=== PATIENT | female | born 1930 | race Caucasian/White ===

== ENCOUNTER 2016-10-18 09:59 | Observation (INO) | payer MEDICARE, OTHER ==
[~2016-10-18] VITALS: Ht 157.5 cm; Wt 64.9 kg
[2016-10-18] MEDS ORDERED: ASPIRIN 81 MG TAB PO STA (10:20)
[2016-10-18] MEDS ORDERED: DILT240C98 PO (10:36)
[2016-10-18] MEDS ORDERED: ERGO2000 PO (10:39)
[2016-10-18] MEDS ORDERED: NIT4 SL (10:40)
[2016-10-18] MEDS ORDERED: WARF2.5T PO (10:42)
[2016-10-18] MEDS ORDERED: WARF5TAB72 PO (10:42)
[2016-10-18] MEDS ORDERED: TRAZ50TA18 PO (10:43)
[2016-10-18] MEDS ORDERED: CARV6.2579 PO (10:43)
[2016-10-18] MEDS ORDERED: ALEN70TA30 PO (10:43)
[2016-10-18] MEDS ORDERED: TIMO5DRO30 BOTH EYES (10:44)
[2016-10-18] MEDS ORDERED: PREMVAG VAG (10:44)
[2016-10-18 10:46] LABS: BASOPHILS % 0.3 % (0.0-2.0); EOSINOPHILS # 0.1 10^3/ul (0.0-0.5); EOSINOPHILS % 1.3 % (0.0-7.0); HEMATOCRIT 38.5 % (37.0-47.0); HEMOGLOBIN 12.7 g/dl (12.0-16.0); LYMPHOCYTES # 2.1 10^3/ul (0.8-2.9); LYMPHOCYTES % 25.9 % (15.0-51.0); MEAN CORPUSCULAR HEMOGLOBIN 29.1 pg (29.0-33.0); MEAN CORPUSCULAR VOLUME 88.3 fl (82.0-101.0); MEAN PLATELET VOLUME 10.6 fl (7.4-10.4); MONOCYTE # 0.5 10^3/ul (0.3-0.9); MONOCYTES % 6.3 % (0.0-11.0); NEUTROPHIL # 5.2 10^3/ul (1.6-7.5); NEUTROPHILS % 65.8 % (39.0-77.0); PLATELET COUNT 188 10^3/UL (140-415); RED BLOOD COUNT 4.36 10^6/ul (4.20-5.40); RED CELL DISTRIBUTION WIDTH 13.6 % (11.5-14.5); WHITE BLOOD COUNT 7.9 10^3/ul (4.8-10.8)
[2016-10-18 11:04] LABS: INR 2.52; PARTIAL THROMBOPLASTIN TIME 30.9 Sec (25.0-35.0); PROTIME 27.5 Sec (12.2-14.2); PT RATIO 2.1
[2016-10-18 11:06] LABS: ANION GAP 18 (8-16); BLOOD UREA NITROGEN 16 mg/dl (7-20); CALCIUM 8.7 mg/dl (8.4-10.2); CARBON DIOXIDE 26 mmol/L (21-31); CHLORIDE 105 mmol/L (97-110); CREATININE 0.81 mg/dl (0.44-1.00); GLUCOSE 119 mg/dl (70-220); POTASSIUM 3.9 mmol/L (3.5-5.1); SODIUM 145 mmol/L (135-144)
--- NOTE | 2016-10-18 11:08 | RADRPT ---
PROCEDURE: XR Chest. CLINICAL INDICATION: Chest Pain. TECHNIQUE: Single frontal chest x-ray. COMPARISON: None. FINDINGS: The lungs are clear of acute infiltrates, edema, effusions, or masses. There is a dual chamber cardi ac pacer overlying the left chest. Calcific atherosclerosis of the aorta is present.. The cardiomed iastinal silhouette is unremarkable. The osseous structures are intact. IMPRESSION: No acute cardiopulmonary disease. Left-sided cardiac pacer in place. RPTAT: JJ .Marvin Dewey MD, MD Date Time Electronically viewed and signed by .Marvin Dewey MD, MD on 10/18/2016 11:08 .L/
[2016-10-18 11:14] LABS: B-TYPE NATRIURETIC PEPTIDE 694 PG/ML (0-450)
[2016-10-18 11:23] LABS: TROPONIN-I < 0.012 ng/ml (0.00-0.12)
--- NOTE | 2016-10-18 11:42 | ERA ---
ER Documentation Chief Complaint Date/Time DATE: 10/18/16 TIME: 11:39 Chief Complaint SOB HPI 86-year-old female, Tongan-speaking. The patient presents with shortness of breath and chest discomfort prior to arrival. The patient was given nitroglycerin by family prior to arrival and was hypotensive responsive to fluid resuscitation via EMS. The patient is improved currently. She denies any pleuritic pain, no fevers chills or cough. ROS All systems reviewed and are negative except as per history of present illness. Medications Home Meds Reported Medications Estrogens Conjugated* (Premarin* Vaginal Cream) 1 Applic Cr, 1 APPLIC VAG BID, TUB 10/18/16 Timolol Maleate* (Timoptic*) 0.5%-5ml Opht, 1 DROP BOTH EYES BID, #1 EA 10/18/16 Alendronate Sodium* (Fosamax*) 70 Mg Tablet, 70 MG PO EVERY SATURDAY, #4 TAB 10/18/16 Carvedilol* (Carvedilol*) 6.25 Mg Tablet, 6.25 MG PO BID, #60 TAB 10/18/16 Trazodone Hcl* (Trazodone Hcl*) 50 Mg Tablet, 50 MG PO QHS Y for INSOMNIA, #30 TAB 10/18/16 Warfarin Sodium* (Coumadin*) 5 Mg Tablet, 5 MG PO SEE NOTE, TAB SUN,TUE,WED,THUR,SAT 10/18/16 Warfarin Sodium* (Coumadin*) 2.5 Mg Tablet, 2.5 MG PO MON AND FRI, TAB 10/18/16 Nitroglycerin* (Nitrostat*) 0.4 Mg Tab.subl, 0.4 MG SL Q5MIN Y for CHEST PAIN, BOTTLE 10/18/16 Ergocalciferol (Vitamin D2) (VITAMIN D2) 2,000 Unit Tablet, 2000 UNIT PO DAILY, TAB 10/18/16 Diltiazem Hcl* (Diltiazem XT) 240 Mg Capsule.er, 240 MG PO DAILY, #30 CAP 10/18/16 Allergies Allergies: Coded Allergies: No Known Drug Allergy (Verified Allergy, Mild, 10/18/16) PMhx/Soc History of Surgery: Yes (Pacemaker, ) Anesthesia Reaction: No Hx Neurological Disorder: No Hx Respiratory Disorders: No Hx Cardiac Disorders: Yes (HTN) Hx Psychiatric Problems: No Hx Miscellaneous Medical Probl: No Hx Alcohol Use: No Hx Substance Use: No Hx Tobacco Use: No Smoking Status: Never smoker FmHx Family History: No diabetes Physical Exam Vitals Vital Signs Date Time Temp Pulse Resp B/P Pulse Ox O2 Delivery O2 Flow Rate FiO2 10/18/16 10:24 0 10/18/16 10:10 98.0 75 28 148/83 100 Physical Exam General: Well developed, well nourished, no acute distress Head: Normocephalic, atraumatic. Eyes: Pupils equally reactive, EOM intact ENT: Moist mucous membranes Neck: Supple, no lymphadenopathy Respiratory: Lungs clear bilaterally, no distress Cardiovascular: RRR, no murmurs, rubs, or gallops Abdominal: Soft, non-tender, non-distended, no peritoneal signs : Deferred MSK: No edema, no unilateral swelling, 5/5 strength Neurologic: Alert and oriented, moving all extremities, normal speech, no focal weakness, no cerebellar signs Skin: No rash Psych: Normal mood Result Diagram: 10/18/16 1034 10/18/16 1034 Results 24 hrs Laboratory Tests Test 10/18/16 10:34 White Blood Count 7.910^3/ul Red Blood Count 4.3610^6/ul Hemoglobin 12.7g/dl Hematocrit 38.5% Mean Corpuscular Volume 88.3fl Mean Corpuscular Hemoglobin 29.1pg Mean Corpuscular Hemoglobin Concent 33.0g/dl Red Cell Distribution Width 13.6% Platelet Count 15829^3/UL Mean Platelet Volume 10.6fl Neutrophils % 65.8% Lymphocytes % 25.9% Monocytes % 6.3% Eosinophils % 1.3% Basophils % 0.3% Nucleated Red Blood Cells % 0.0/100WBC Neutrophils # 5.210^3/ul Lymphocytes # 2.110^3/ul Monocytes # 0.510^3/ul Eosinophils # 0.110^3/ul Basophils # 0.010^3/ul Nucleated Red Blood Cells # 0.010^3/ul Prothrombin Time 27.5Sec Prothrombin Time Ratio 2.1 INR International Normalized Ratio 2.52 Activated Partial Thromboplast Time 30.9Sec Sodium Level 145mmol/L Potassium Level 3.9mmol/L Chloride Level 105mmol/L Carbon Dioxide Level 26mmol/L Anion Gap 18 Blood Urea Nitrogen 16mg/dl Creatinine 0.81mg/dl Glucose Level 119mg/dl Calcium Level 8.7mg/dl Troponin I < 0.012ng/ml B-Type Natriuretic Peptide 694PG/ML Current Medications Medications (Trade) Dose Ordered Sig/Eddie Route PRN Reason Start Time Stop Time Status Last Admin Dose Admin Aspirin (Aspirin) 162 mg ONCE STAT PO 10/18/16 10:20 10/18/16 10:22 DC 10/18/16 10:43 Procedures/MDM EKG, MONITORS, & DIAGNOSTIC IMAGING: EKG: I reviewed and interpreted a 12-lead EKG. Rhythm: paced rhythm Ectopy: None Intervals: No abnormalities ST segments: No elevations or depressions T waves: No contiguous inversions Repeat EKG: EKG: I reviewed and interpreted a 12-lead EKG. Rhythm: Paced rhythm Ectopy: None Intervals: No abnormalities ST segments: No elevations or depressions T waves: No contiguous inversions Chest x-ray: I reviewed and interpreted a 1 view of the chest Mediastinum: No enlargement Cardiac silhouette: No cardiomegaly Airspace: Clear lung martinez bilaterally without evidence of pneumothorax Bones: No evidence of fracture LAB INTERPRETATION: Negative troponin, indeterminate BMP MEDICAL DECISION MAKING: The patient's history, physical exam and clinical presentation is concerning for possible cardiogenic etiology and acute coronary syndrome. Based on the patient's clinical exam and history and risk factors, I have a much lower clinical concern for pulmonary embolism, acute aortic dissection, pneumothorax, pneumonia, cardiac tamponade HEART Score: 5 MACE Rate: 16.6% Shared Decision Making: We had a conversation regarding risk stratification, MACE rate, and the risks, benefits, alternatives of disposition planning options. Disposition planning: Hospitalization ER COURSE: Aspirin completed, nitroglycerin provided. Patient remains asymptomatic and is resting comfortably. I kept the patient and/or family informed of laboratory and diagnostic imaging results throughout the emergency room course. DISPOSITION PLAN: Telemetry admission for management of chest pain to rule out ACS CONSULTATION: Accepting care team and consultations: I discussed the current laboratory data, diagnostic imaging and emergency care provided. Admitting team: Dr. Ross Admitting team indication: Insurance directed Consulting services: Departure Diagnosis: Primary Impression: Shortness of breath Additional Impression: Chest pain Qualified Code: R07.9 - Chest pain, unspecified type Condition: EJ Partida MD Oct 18, 2016 11:41
[2016-10-18 11:44] VITALS: BP 157/71; RESP 17
[2016-10-18] MEDS ORDERED: ACETAMINOPHEN 325 MG TAB PO PRN (12:00)
[2016-10-18] MEDS ORDERED: ONDANSETRON 4 MG INJ IV PRN (12:00)
[2016-10-18 12:12] VITALS: PULSE 80
[2016-10-18 13:07] VITALS: Ht 157.5 cm; Wt 64.9 kg
--- NOTE | 2016-10-18 15:13 | HP ---
Date/Time of Note Date/Time of Note DATE: 10/18/16 TIME: 15:07 Assessment/Plan VTE Prophylaxis VTE Prophylaxis Intervention: other Lines/Catheters IV Catheter Type (from Nrsg): Peripheral IV Assessment/Plan Chief Complaint/Hosp Course 86 yo female with h/o permanent A Fib, PPM for sick sinus syndrome, hypertension who presents after episode of CP this AM for which she took SLNG and then developed sympomatic hypotension CP: - Perhaps brief episode of angina, though suspect noncardiac cause given EKG findings and negative biomarker - No need for further stress testing - Repeat troponin would be reasonable but patient and family decline, prefer to go home now Hypertension: - Continue Coreg 6.25 - Continue Diltiazem 240 ER A Fib: - Continue cata blockers as above - Continue coumadin Sick sinus sydnrome: - F/u EP doctor Discharge today Problems: HPI/ROS Admit Date/Time Admit Date/Time Oct 18, 2016 at 11:36 Hx of Present Illness 86 yo female with hypertension and permanent A Fib on AC who presented this AM after episode of SOB and chest discomfort. Patient was awoken from sleep around 4 AM with chest discomfort and shortness of breath. Symptoms lasted hours. Was given SLNG x 3 and became hypotensive and dizzy, not very responsive. 911 was called. Here hypotensive but chest symptoms resolved. Hypotension eventually resolved as well. When seen by me she is completely back to normal symptomatically. Alert and interactive denying any symptoms at all and requesting to return home. She denies previous simliar episodes. No h/o angina despite SLNG rx. PMH/Family/Social Past Medical History Permananet Atrial fib Glaucoma hypertension Permanent pacemaker (SSS) Family History Significant Family History: no pertinent family hx Social History Alcohol Use: none Smoking Status: Never smoker Drug Use: none Exam/Review of Systems Vital Signs Vitals Vital Signs Date Time Temp Pulse Resp B/P Pulse Ox O2 Delivery O2 Flow Rate FiO2 10/18/16 12:12 80 10/18/16 11:44 17 157/71 98 Room Air 10/18/16 10:24 0 10/18/16 10:10 98.0 Exam Exam Well appearing elderly female, resting in NAD, Aox3 Comfortable appearing RRR, no m/r/g Clear lungs Flat neck veins No peripheral edema Abd soft nt nd Ambulating without difficulty Labs Result Diagram: 10/18/16 1034 10/18/16 1034 RODRIGO HALE MD Oct 18, 2016 15:13
--- NOTE | 2016-10-18 15:20 | DS ---
Date/Time of Note Date/Time of Note DATE: 10/18/16 TIME: 15:18 Discharge Summary Admission/Discharge Info Admit Date/Time Oct 18, 2016 at 11:36 Discharge Date/Time Patient Condition: Good Hx of Present Illness 86 yo female with hypertension and permanent A Fib on AC who presented this AM after episode of SOB and chest discomfort. Patient was awoken from sleep around 4 AM with chest discomfort and shortness of breath. Symptoms lasted hours. Was given SLNG x 3 and became hypotensive and dizzy, not very responsive. 911 was called. Here hypotensive but chest symptoms resolved. Hypotension eventually resolved as well. When seen by me she is completely back to normal symptomatically. Alert and interactive denying any symptoms at all and requesting to return home. She denies previous simliar episodes. No h/o angina despite SLNG rx. Hospital Course 86 yo female with h/o permanent A Fib, PPM for sick sinus syndrome, hypertension who presents after episode of CP this AM for which she took SLNG and then developed sympomatic hypotension Symptoms now resolved. Unclear the etiology of her chest pain episode but given negative biomarker very unlikely an acute IL. Symptoms lasted for hours at rest, unlikely anginal. Given resolution of symptoms she can be discharged per her request with close return precautions if chest symptoms recur. She will follow up with her outside cafeteria attendant for further evaluation and management. Home Meds Reported Medications Estrogens Conjugated* (Premarin* Vaginal Cream) 1 Applic Cr, 1 APPLIC VAG BID, TUB 10/18/16 Timolol Maleate* (Timoptic*) 0.5%-5ml Opht, 1 DROP BOTH EYES BID, #1 EA 10/18/16 Alendronate Sodium* (Fosamax*) 70 Mg Tablet, 70 MG PO EVERY SATURDAY, #4 TAB 10/18/16 Carvedilol* (Carvedilol*) 6.25 Mg Tablet, 6.25 MG PO BID, #60 TAB 10/18/16 Trazodone Hcl* (Trazodone Hcl*) 50 Mg Tablet, 50 MG PO QHS Y for INSOMNIA, #30 TAB 10/18/16 Warfarin Sodium* (Coumadin*) 5 Mg Tablet, 5 MG PO SEE NOTE, TAB SUN,TUE,WED,UR,SAT 10/18/16 Warfarin Sodium* (Coumadin*) 2.5 Mg Tablet, 2.5 MG PO MON AND FRI, TAB 10/18/16 Nitroglycerin* (Nitrostat*) 0.4 Mg Tab.subl, 0.4 MG SL Q5MIN Y for CHEST PAIN, BOTTLE 10/18/16 Ergocalciferol (Vitamin D2) (VITAMIN D2) 2,000 Unit Tablet, 2000 UNIT PO DAILY, TAB 10/18/16 Diltiazem Hcl* (Diltiazem XT) 240 Mg Capsule.er, 240 MG PO DAILY, #30 CAP 10/18/16 Primary Care Provider Not On Staff Doctor Time spent on discharge: < 30 minutes Pending Labs Laboratory Tests Test 10/18/16 10:34 White Blood Count 7.910^3/ul (4.8-10.8) Red Blood Count 4.3610^6/ul (4.20-5.40) Hemoglobin 12.7g/dl (12.0-16.0) Hematocrit 38.5% (37.0-47.0) Mean Corpuscular Volume 88.3fl (82.0-101.0) Mean Corpuscular Hemoglobin 29.1pg (29.0-33.0) Mean Corpuscular Hemoglobin Concent 33.0g/dl (32.0-37.0) Red Cell Distribution Width 13.6% (11.5-14.5) Platelet Count 29163^3/UL (140-415) Mean Platelet Volume 10.6fl (7.4-10.4) Neutrophils % 65.8% (39.0-77.0) Lymphocytes % 25.9% (15.0-51.0) Monocytes % 6.3% (0.0-11.0) Eosinophils % 1.3% (0.0-7.0) Basophils % 0.3% (0.0-2.0) Nucleated Red Blood Cells % 0.0/100WBC (0.0-0.0) Neutrophils # 5.210^3/ul (1.6-7.5) Lymphocytes # 2.110^3/ul (0.8-2.9) Monocytes # 0.510^3/ul (0.3-0.9) Eosinophils # 0.110^3/ul (0.0-0.5) Basophils # 0.010^3/ul (0.0-0.1) Nucleated Red Blood Cells # 0.010^3/ul (0.0-0.0) Prothrombin Time 27.5Sec (12.2-14.2) Prothrombin Time Ratio 2.1 INR International Normalized Ratio 2.52 Activated Partial Thromboplast Time 30.9Sec (25.0-35.0) Sodium Level 145mmol/L (135-144) Potassium Level 3.9mmol/L (3.5-5.1) Chloride Level 105mmol/L (97-110) Carbon Dioxide Level 26mmol/L (21-31) Anion Gap 18 (8-16) Blood Urea Nitrogen 16mg/dl (7-20) Creatinine 0.81mg/dl (0.44-1.00) Glucose Level 119mg/dl (70-220) Calcium Level 8.7mg/dl (8.4-10.2) Troponin I < 0.012ng/ml (0.00-0.12) B-Type Natriuretic Peptide 694PG/ML (0-450) RODRIGO HALE MD Oct 18, 2016 15:20
--- NOTE | 2016-10-18 15:22 | PDOCDIS ---
Discharge Instructions DIAGNOSIS Discharge Diagnosis Hypotension CONDITION Patient Condition: Good HOME CARE INSTRUCTIONS: Diet Instructions: Regular ACTIVITY: Activity Restrictions: No Restrictions FOLLOW UP/APPOINTMENTS Follow-up Plan Follow up with your concession attendant as soon as you can Return to the ED if symptoms recur or any other concerns RODRIGO HALE MD Oct 18, 2016 15:22
== END 2016-10-18 16:20 | disposition home or self-care (01) ==
LOC: E/R 09:59 → INTOOBSV 11:36 → TEL 11:36 → UNDODISIN 16:20
PROVIDERS: ADMIT Internal Medicine; ATTEND Internal Medicine
DX: R07.9 Chest pain, unspecified (principal); I48.2 Chronic atrial fibrillation; I10 Essential (primary) hypertension; Z95.0 Presence of cardiac pacemaker; Z79.01 Long term (current) use of anticoagulants
CPT/HCPCS: 36415; 71010; 80048; 83880; 84484; 85025; 85610; 85730; 93005; 99285; G0378